=== PATIENT | male | born 1980 | race Caucasian/White ===

== ENCOUNTER → 2020-11-11 14:20 | Outpatient (BNVA) | payer SELFPAY | PROVIDERS: Visit Provider Physician Assistant Medical | DX: Z02.79 Encounter for issue of other medical certificate (principal) ==

== ENCOUNTER 2023-04-05 11:37 | Outpatient (AMB) | payer MEDICAID, SELFPAY ==
--- NOTE | 2023-04-05 11:36 | A.OFFVIS_ITS ---
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 Pt is on his feet a lot and sometimes does heavy lifting. Also has family hx of VV. Pt states he has had VV for many years. Pt states they are painful, itching, swelling and discoloration. 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 Complaints include pain over varicosities, swelling of lower extremities, cramping, fatigue, and heaviness of the lower extremities. 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 It is noted more so in left leg. Patient denies any previous venous surgery or injections. Patient denies any history of DVT/ PE. Patient denies any history of phlebitis. Trial of compression includes - [id number] They now present for vascular evaluation regarding their varicose veins. Review of Systems Const Reports as per HPI ENT Reports no additional complaints Card Denies chest pain, Denies chest pain at rest and Denies chest pain with activity Resp Denies chest congestion and Denies cough GI Reports no additional complaints Musc Details: pain over varicosities, aching of lower extremities, swelling, cramping, heaviness and tiredness, itching Denies abnormal gait Skin/Breast Reports pruritus and Denies wounds Neuro Reports no additional complaints and Denies abnormal gait Psych Denies no additional complaints Physical Exam Vital Signs: BMI result Body Mass Index 30.3 Const General: cooperative, healthy appearing and comfortable Orientation/consciousness: oriented to person, oriented to place and oriented to time Neck Carotids: no bruits Chest Chest palpation & inspection: normal inspection of the chest and normal palpation of entire chest wall Resp Effort & Inspection: normal respiratory effort and able to speak in complete sentences Cardio Rate: regular rate Heart sounds: S1 normal heart sound present and S2 normal heart sound present Peripheral pulses: Peripheral pulses 2+ throughout GI Inspection: Yes normal to inspection Skin Other: +2 edema, large rope-like varicosities greater than 4 mm left calf CEAP Classification C4 - skin color changes Ep - Etiology Primary As - superficial veins P - reflux General skin exam: dry skin Neuro General: oriented to person, oriented to place and oriented to time Extrem Right lower extremity: full ROM, normal capillary refill and edema Left lower extremity: full ROM, normal capillary refill and edema Psych Mental Status: mental status grossly normal Assessment & Plan Assessment & Plan (1) Varicose veins of left lower extremity with inflammation: Code(s): I83.12 - Varicose veins of left lower extremity with inflammation Plan: In short, the patient has evidence of venous insufficiency. I have discussed the pathophysiology with the patient. In addition I have provided informational material regarding venous disease to the patient. We have discussed conservative measures including compression, elevation, and exercise. I have also provided a handout regarding appropriate use of compression stockings and where to purchase good compression stockings as well. I have taken the liberty of ordering venous insufficiency testing with the patient. They will follow up with me after testing. The patient had an opportunity to ask questions regarding the treatment plan. All questions were answered. Imaging studies, laboratory studies and physical exam results were discussed and reviewed in detail. No major barriers to understanding were identified. The patient expressed understanding and agreement with the above treatment plan. The patient is aware they should contact our office by phone for worsening of the current condition or the appearance of new symptoms. Thank you for allowing me to participate in the vascular care of this patient. If you have any questions or concerns regarding the treatment for the above condition please do not hesitate to contact me. The office telephone contact is [phone]. This note is constructed using voice recognition software. While every effort has been made to ensure accuracy, movie projectionist errors may have been included. Thank you for allowing me to participate in the care of your patient. Yours sincerely, Ankit Gill MD, FACS, R.P.V.I. Orders: Orders US venous insuf bilat 1 Week I83.12 - Varicose veins of left lower extremity with inflammation Coding Level of Care Code New Pt Level 4 (92992) Diagnoses Varicose veins of left lower extremity with inflammation I83.12
[2023-04-05 11:38] VITALS: BMI 30.3
== END 2023-04-05 11:52 | disposition home or self-care (01) ==
PROVIDERS: Visit Provider Surgery Vascular Surgery
DX: I83.12 Varicose veins of left lower extremity with inflammation (principal)
CPT/HCPCS: 99203

== ENCOUNTER → 2023-04-05 11:37 | Outpatient (BNVA) | payer MEDICAID, SELFPAY | PROVIDERS: Visit Provider Surgery Vascular Surgery | DX: I83.12 Varicose veins of left lower extremity with inflammation (principal) | CPT/HCPCS: 99202 ==

== ENCOUNTER 2023-04-27 13:05 | Outpatient (REF) | payer MEDICAID, SELFPAY ==
--- NOTE | ~2023-04-27 | US_ITS ---
EXAMINATION: US LOWER EXTREMITY VENOUS (REFLUX EXAM), BILATERAL CLINICAL INDICATION: Varicose veins COMPARISON: None. TECHNIQUE: Color flow triplex imaging and compression Doppler was performed to evaluate both the deep and the superficial systems bilaterally. To evaluate the superficial system, the examination was performed in the upright position. Color-flow Doppler ultrasound and compression ultrasound were utilized. In addition, maneuvers were utilized to demonstrate reflux. FINDINGS: RIGHT: 1. DEEP VENOUS ULTRASOUND OF THE RIGHT LOWER EXTREMITY: Common Femoral Vein: Compressible, normal respiratory variation and augmented flow. Popliteal Vein: Compressible, normal augmentation. Deep Venous Reflux: Abnormal reflux is seen within the popliteal vein (1080 ms). There is no evidence of a Pérez's cyst. 2. SUPERFICIAL ULTRASOUND WITH DOPPLER OF RIGHT LOWER EXTREMITY: RIGHT GREAT SAPHENOUS VEIN: Saphenofemoral Junction: 7 mm. No reflux. Proximal Thigh: 6 mm. 2052 ms reflux. Mid Thigh: 6 mm. 2076 ms reflux. Above Knee: 6 mm. 2004 ms reflux. Below Knee: 5 mm. 2046 ms reflux. Mid Calf: 3 mm. No reflux. Ankle: 2 mm. No reflux. DUPLICATED GREAT SAPHENOUS VEIN: Located medially and laterally, without reflux. RIGHT SMALL SAPHENOUS VEIN: Proximal: 3 mm. No reflux. Distal: 2 mm. No reflux. PERFORATORS: At the level of the knee measuring 0.8 mm. At the level of the calf measuring 2 mm. At the level of the distal calf measuring 2 mm. No abnormal reflux within any of these perforators. Varicose veins: Proximal calf: 3 to 5 mm with abnormal reflux up to 2168 ms. LEFT: 1. DEEP VENOUS ULTRASOUND OF THE LEFT LOWER EXTREMITY: Common Femoral Vein: Compressible, normal respiratory variation and augmented flow. Popliteal Vein: Compressible, normal augmentation. Deep Venous Reflux: Abnormal reflux is seen within the common femoral (884 ms) and popliteal veins (712 ms). There is no evidence of a Pérez's cyst. 2. SUPERFICIAL ULTRASOUND WITH DOPPLER OF LEFT LOWER EXTREMITY: LEFT GREAT SAPHENOUS VEIN: Saphenofemoral Junction: 7 mm. No reflux. Proximal Thigh: 7 mm. 2032 ms reflux. Mid Thigh: 7 mm. 2120 ms reflux. Above Knee: 6 mm. 2260 ms reflux. Below Knee: 3 mm. 1648 ms reflux. Mid Calf: 2 mm. 2016 ms reflux. Ankle: 2 mm. No reflux. DUPLICATED GREAT SAPHENOUS VEIN: Located medially and laterally, without reflux. LEFT SMALL SAPHENOUS VEIN: Proximal: 2 mm. No reflux. Distal: 3 mm. No reflux. PERFORATORS: Mid small saphenous vein: 2 mm. No reflux Distal small saphenous vein: 3 mm. No reflux Proximal calf: 3 mm. No reflux Varicose veins: Proximal calf: 5 mm. 2076 ms reflux US/US venous insuf bilat IMPRESSION: 1. Abnormal deep venous reflux seen within bilateral popliteal and left common femoral veins. 2. Abnormal superficial venous reflux within bilateral great saphenous veins. 3. Bilateral proximal calf varicose veins measuring greater than 3 mm and associated with abnormal reflux. Abnormal lower extremity venous reflux times: Superficial and deep calf veins: >500 ms Femoropopliteal veins: >1000 ms Perforating veins: >350 ms Labarun N, Susan J, Lupillo L, Sarah AK, Anthony SS, King Veloz M, Beto WH. Definition of venous reflux in lower-extremity veins.J Vasc Surg. 2003; [phone].
== END 2023-04-27 13:06 | disposition home or self-care (01) ==
LOC: HO.US 13:05
PROVIDERS: Visit Provider Surgery Vascular Surgery
DX: I83.12 Varicose veins of left lower extremity with inflammation (principal)
CPT/HCPCS: 93970

== ENCOUNTER 2023-05-08 13:41 | Outpatient (AMB) | payer MEDICAID, SELFPAY ==
--- NOTE | 2023-05-08 13:43 | A.OFFVIS_ITS ---
Intake Vital Signs 05/08/23 13:46 Height 6 ft 1 in Weight 230 lb BMI 30.3 Intake Visit Reasons: follow up [facility] 04/27/2023 Intake Note: follow up [facility] 04/27/23, Pt states that Left LE is worse than Right LE, Pt is on his feet a lot and does heavy lifting. Has family Hx of VV and has had VV for many years but more recentky they have become painful. He has itching, pain, swelling and discoloration Accompanied by: Self / Same As Patient Allergies No Known Allergies Allergy (Verified 05/08/23 13:49) HPI follow up [facility] 04/27/2023 HPI Details Very pleasant 42-year-old gentleman presents for follow-up regarding venous insufficiency. Reports that he has significant difficulty left more so than right. 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 He now presents for follow-up with venous insufficiency testing. Review of Systems Const Reports as per HPI ENT Reports no additional complaints Card Denies chest pain, Denies chest pain at rest and Denies chest pain with activity Resp Denies chest congestion and Denies cough GI Reports no additional complaints Musc Details: pain over varicosities, aching of lower extremities, swelling, cramping, heaviness and tiredness, itching Denies abnormal gait Skin/Breast Reports pruritus and Denies wounds Neuro Reports no additional complaints and Denies abnormal gait Psych Denies no additional complaints Physical Exam Vital Signs: BMI result Body Mass Index 30.3 Const General: cooperative, healthy appearing and comfortable Orientation/consciousness: oriented to person, oriented to place and oriented to time Neck Carotids: no bruits Chest Chest palpation & inspection: normal inspection of the chest and normal palpation of entire chest wall Resp Effort & Inspection: normal respiratory effort and able to speak in complete sentences Cardio Rate: regular rate Heart sounds: S1 normal heart sound present and S2 normal heart sound present Peripheral pulses: Peripheral pulses 2+ throughout GI Inspection: Yes normal to inspection Skin Other: +2 edema, large rope-like varicosities greater than 4 mm CEAP Classification C4 - skin color changes Ep - Etiology Primary As - superficial veins P - reflux General skin exam: dry skin Neuro General: oriented to person, oriented to place and oriented to time Extrem Right lower extremity: full ROM, normal capillary refill and edema Left lower extremity: full ROM, normal capillary refill and edema Psych Mental Status: mental status grossly normal Results Reviewed Results Reviewed: Brief summary of venous insufficiency testing is as follows: right great saphenous vein: Positive right small saphenous vein: negative right accessory vein: none present left great saphenous vein: Positive left small saphenous vein: negative left accessory vein: none present Please note there is no evidence of any venous aneurysms or significant tortuosity Assessment & Plan Assessment & Plan (1) Varicose veins of left lower extremity with inflammation: Code(s): I83.12 - Varicose veins of left lower extremity with inflammation Plan: This patient has varicose veins with inflammation. They continue to be a source of discomfort for the patient. The patient has tried conservative treatment with compression, leg elevation and exercise program for over 3 months time. They have been compliant with all treatment. This has provided minimal relief for the patient. I do not anticipate this course of treatment will alter the underlying etiology. The patient has been scheduled for lower extremity venous treatment inclusive of --- left great saphenous vein Cyanoacralate ablation. Risks, benefits, and complications of this procedure has been discussed in detail with the patient including but not limited to bleeding, infection, and the development of a DVT. The patient has demonstrated a clear understanding and has consented. We will schedule the patient as soon as possible. Thank you for allowing us to participate in this patient's care. If there are any questions or concerns please do not hesitate to contact us. Coding Level of Care Code Est Pt Level 4 (05313) Diagnoses Varicose veins of left lower extremity with inflammation I83.12
[2023-05-08 13:46] VITALS: BMI 30.3
== END 2023-05-08 14:34 | disposition home or self-care (01) ==
PROVIDERS: Visit Provider Surgery Vascular Surgery
DX: I83.12 Varicose veins of left lower extremity with inflammation (principal)
CPT/HCPCS: 99214

== ENCOUNTER → 2023-05-08 13:41 | Outpatient (BNVA) | payer MEDICAID, SELFPAY | PROVIDERS: Visit Provider Surgery Vascular Surgery | DX: I83.12 Varicose veins of left lower extremity with inflammation (principal) | CPT/HCPCS: 99212 ==

== ENCOUNTER 2023-06-22 09:33 | Outpatient (AMB) | payer MEDICAID, SELFPAY ==
--- NOTE | 2023-06-22 09:45 | MHC.OFFVIS ---
Vital Signs 06/22/23 09:46 Height 6 ft 1 in Weight 230 lb BMI 30.3 Intake Visit Reasons: Left GSV Venaseal Accompanied by: Self / Same As Patient Allergies No Known Allergies Allergy (Verified 06/22/23 09:56) Physical Exam Vital Signs: BMI result Body Mass Index 30.3 Office Procedures Vascular Office Procedure Details Details: Diagnosis: Left Leg varicose veins with inflammation Procedure: Endovenous Ablation of the left Great Saphenous Vein with VenaSeal Closure System Anesthesia: Local infiltration 5 cc, Estimated Blood Loss: min Specimen: none Duplex ultrasound was used to map out the insufficient saphenous vein, and access was determined and marked on the overlying skin. The depth and diameter of the vein(s) to be treated was documented. The patient was placed supine on the procedure table and the leg was prepped and draped using sterile technique. Ultasound guidance was again used to localize the access site. 1% lidocaine was injected as a local anesthetic in the subcutaneous tissues at the target location in the GSV in the lower leg. Using ultrasound guidance, access was gained at this location with the 19 gauge thin walled access needle and followed by introduction of a short guidewire, location confirmed with ultrasound. A small, 3 mm incision was made at the access site to allow for introduction and placement of the 7 Fr x7cm introducer/dilator. The dilator and guidewire were removed. The 0.035 guidewire from the VenaSeal kit was then introduced and positioned at the saphenofemoral junction using ultrasound guidance. The 80 cm 7 Fr introducer sheath/dilator was positioned 5cm from the saphenofemoral junction. The guidewire and dilator were removed, and the remaining sheath was flushed with sterile saline, with the syringe remaining in place prior to the next steps. The cyanoacrylate adhesive was precisely primed into the 5 F delivery catheter and this catheter/syringe combination was attached within the dispenser gun. This assembly was introduced through the 7F sheath and positioned 5 cm caudal of the saphenofemoral junction under ultrasound guidance. The steps from the IFU were followed for dispensing amounts, locations and compression times, 2 aliquots proximally with 3 minutes of compression, and 1 aliquot every 3 cm distally with 30 sec of compression along the course of the vessel. Following the last injection and compression sequence, the catheter and introducer sheath were pulled out from the access site. Hemostasis was achieved with manual compression and an adhesive bandage was applied to the incision. Ultrasound confirmed complete coaptation and closure of the treated segments of the GSV, and the absence of any DVT at the saphenofemoral junction. Treatment time was approximately 5 minutes and the vein length treated was 31 cm. The drapes were removed and the patient cleaned and prepared for discharge. Post op ultrasound check is scheduled for 48-72 hours and the patient was given written post-op instructions. 58263 - Endoven Ther Chem Adhes 1st All charges added?: Procedure code (CPT) selection complete Assessment & Plan Assessment & Plan (1) Varicose veins of left lower extremity with inflammation: Comment: 06/22/2023- left great saphenous vein Cyanoacralate ablation Code(s): I83.12 - Varicose veins of left lower extremity with inflammation Category: Medical Plan: See op note Coding Level of Care Code Est Pt Level 4 (38221) Diagnoses Varicose veins of left lower extremity with inflammation I83.12 CPT Codes Details - Vascular 3: 14736 - Endoven Ther Chem Adhes 1st ([id number])
[2023-06-22 09:46] VITALS: BMI 30.3
== END 2023-06-22 11:46 | disposition home or self-care (01) ==
PROVIDERS: Referring Provider Internal Medicine; Visit Provider Surgery Vascular Surgery
DX: I83.12 Varicose veins of left lower extremity with inflammation (principal)
CPT/HCPCS: 36482

== ENCOUNTER → 2023-06-22 09:33 | Outpatient (BNVA) | payer MEDICAID, SELFPAY | PROVIDERS: Visit Provider Surgery Vascular Surgery | DX: I83.12 Varicose veins of left lower extremity with inflammation (principal) | CPT/HCPCS: 36482 ==

== ENCOUNTER 2023-06-25 13:21 | Outpatient (REF) | payer MEDICAID, SELFPAY ==
--- NOTE | ~2023-06-25 | US_ITS ---
EXAMINATION: TRIPLEX SCANNING OF LEFT LOWER EXTREMITY; SUPERFICIAL ULTRASOUND WITH DOPPLER OF LEFT LOWER EXTREMITY CLINICAL INFORMATION: Status VenaSeal ablation of the left great saphenous vein , COMPARISON: Preprocedure studies. TECHNIQUE: Color flow triplex imaging and compression Doppler were performed as well as superficial ultrasound with Doppler. FINDINGS: TRIPLEX SCANNING OF LEFT LOWER EXTREMITY: Respiratory variation, normal compression and augmented flow are noted throughout the lower extremity. The visualized common femoral vein, femoral vein, profunda femoral vein, popliteal vein and the calf veins show no evidence of deep venous thrombosis. There is no evidence of Pérez's cyst. SUPERFICIAL ULTRASOUND WITH DOPPLER OF LEFT LOWER EXTREMITY: The left great saphenous vein is occluded from the access site to 2.1 cm before the saphenofemoral junction. There is no extension of thrombus into the deep system. US/US venous duplex LE IMPRESSION: 1. Normal triplex scan of the left without evidence of deep venous thrombosis. 2. Excellent appearance status post ablation of the left great saphenous vein.
== END 2023-06-25 13:22 | disposition home or self-care (01) ==
LOC: HO.US 13:21
PROVIDERS: Visit Provider Surgery Vascular Surgery
DX: M79.605 Pain in left leg (principal)
CPT/HCPCS: 93971

== ENCOUNTER 2023-07-03 08:59 | Outpatient (AMB) | payer MEDICAID, SELFPAY ==
--- NOTE | 2023-07-03 09:00 | A.OFFVIS_ITS ---
Intake Visit Reasons: 2 week follow up Left GSV RFA 06/22/2023 Intake Note: Patient presents for 2 week follow up left gsv rfa . He states his leg feels good he has minimal bruising. Accompanied by: Self / Same As Patient Allergies No Known Allergies Allergy (Verified 07/03/23 09:02) [facility] 2 week follow up Left GSV RFA 06/22/2023: Details: Very pleasant 42-year-old gentleman presents for follow-up status post left great saphenous vein ablation. He reports no significant issues postprocedure. Of note postprocedure ultrasound was negative for DVT. He is concerned about his right lower extremity. He is experiencing similar symptoms including pain and swelling. He would like evaluation of the right lower extremity. Review of Systems Const Reports as per HPI ENT Reports no additional complaints Card Denies chest pain, Denies chest pain at rest and Denies chest pain with activity Resp Denies chest congestion and Denies cough GI Reports no additional complaints Musc Details: pain over varicosities, aching of lower extremities, swelling, cramping, heaviness and tiredness, itching Denies abnormal gait Skin/Breast Reports pruritus and Denies wounds Neuro Reports no additional complaints and Denies abnormal gait Psych Denies no additional complaints Physical Exam Const General: cooperative, healthy appearing and comfortable Orientation/consciousness: oriented to person, oriented to place and oriented to time Neck Carotids: no bruits Chest Chest palpation & inspection: normal inspection of the chest and normal palpation of entire chest wall Resp Effort & Inspection: normal respiratory effort and able to speak in complete sentences Cardio Rate: regular rate Heart sounds: S1 normal heart sound present and S2 normal heart sound present Peripheral pulses: Peripheral pulses 2+ throughout GI Inspection: Yes normal to inspection Skin Other: +2 edema, large rope-like varicosities greater than 4 mm CEAP Classification C4 - skin color changes Ep - Etiology Primary As - superficial veins P - reflux General skin exam: dry skin Neuro General: oriented to person, oriented to place and oriented to time Extrem Right lower extremity: full ROM, normal capillary refill and edema Left lower extremity: full ROM, normal capillary refill and edema Psych Mental Status: mental status grossly normal Results Reviewed Results Reviewed: Brief summary of venous insufficiency testing is as follows: right great saphenous vein: Positive right small saphenous vein: negative right accessory vein: none present left great saphenous vein: Ablated left small saphenous vein: negative left accessory vein: none present Please note there is no evidence of any venous aneurysms or significant tortuosity Assessment & Plan Assessment & Plan (1) Varicose veins of left lower extremity with inflammation: Comment: 06/22/2023- left great saphenous vein Cyanoacralate ablation Code(s): I83.12 - Varicose veins of left lower extremity with inflammation Category: Medical Plan: See below (2) Varicose veins of right lower extremity with inflammation: Code(s): I83.11 - Varicose veins of right lower extremity with inflammation Category: Medical Plan: This patient has varicose veins with inflammation. They continue to be a source of discomfort for the patient. The patient has tried conservative treatment with compression, leg elevation and exercise program for over 3 months time. They have been compliant with all treatment. This has provided minimal relief for the patient. I do not anticipate this course of treatment will alter the underlying etiology. The patient has been scheduled for lower extremity venous treatment inclusive of --- right great saphenous vein Cyanoacralate ablation. Risks, benefits, and complications of this procedure has been discussed in detail with the patient including but not limited to bleeding, infection, and the development of a DVT. The patient has demonstrated a clear understanding and has consented. We will schedule the patient as soon as possible. Thank you for allowing us to participate in this patient's care. If there are any questions or concerns please do not hesitate to contact us. Coding Level of Care Code Est Pt Level 4 (84388) Diagnoses Varicose veins of left lower extremity with inflammation I83.12 Varicose veins of right lower extremity with inflammation I83.11
== END 2023-07-03 09:31 | disposition home or self-care (01) ==
PROVIDERS: Visit Provider Surgery Vascular Surgery
DX: I83.12 Varicose veins of left lower extremity with inflammation (principal); I83.11 Varicose veins of right lower extremity with inflammation
CPT/HCPCS: 99214

== ENCOUNTER → 2023-07-03 08:59 | Outpatient (BNVA) | payer MEDICAID, SELFPAY | PROVIDERS: Visit Provider Surgery Vascular Surgery | DX: I83.12 Varicose veins of left lower extremity with inflammation (principal); I83.11 Varicose veins of right lower extremity with inflammation | CPT/HCPCS: 99212 ==

== ENCOUNTER 2023-10-05 09:33 | Outpatient (AMB) | payer MEDICAID, SELFPAY ==
[2023-10-05 09:37] VITALS: BMI 30.3
--- NOTE | 2023-10-05 09:37 | MHC.OFFVIS ---
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 The depth and diameter of the vein(s) to be treated was documented. The patient was placed supine on the procedure table and the leg was prepped and draped using sterile technique. Ultasound guidance was again used to localize the access site. 1% lidocaine was injected as a local anesthetic in the subcutaneous tissues at the target location in the GSV in the lower leg. Using ultrasound guidance, access was gained at this location with the 19 gauge thin walled access needle and followed by introduction of a short guidewire, location confirmed with ultrasound. A small, 3 mm incision was made at the access site to allow for introduction and placement of the 7 Fr x7cm introducer/dilator. The dilator and guidewire were removed. The 0.035 guidewire from the VenaSeal kit was then introduced and positioned at the saphenofemoral junction using ultrasound guidance. The 80 cm 7 Fr introducer sheath/dilator was positioned 5cm from the saphenofemoral junction. The guidewire and dilator were removed, and the remaining sheath was flushed with sterile saline, with the syringe remaining in place prior to the next steps. The cyanoacrylate adhesive was precisely primed into the 5 F delivery catheter and this catheter/syringe combination was attached within the dispenser gun. This assembly was introduced through the 7F sheath and positioned 5 cm caudal of the saphenofemoral junction under ultrasound guidance. The steps from the IFU were followed for dispensing amounts, locations and compression times, 2 aliquots proximally with 3 minutes of compression, and 1 aliquot every 3 cm distally with 30 sec of compression along the course of the vessel. Following the last injection and compression sequence, the catheter and introducer sheath were pulled out from the access site. Hemostasis was achieved with manual compression and an adhesive bandage was applied to the incision. Ultrasound confirmed complete coaptation and closure of the treated segments of the GSV, and the absence of any DVT at the saphenofemoral junction. Treatment time was approximately 6 minutes and the vein length treated was 40 cm. The drapes were removed and the patient cleaned and prepared for discharge. Post op ultrasound check is scheduled for 48-72 hours and the patient was given written post-op instructions. 72103 - Endoven Ther Chem Adhes 1st All charges added?: Procedure code (CPT) selection complete Assessment & Plan Assessment & Plan (1) Varicose veins of right lower extremity with inflammation: Comment: 10/05/2023 - right great saphenous vein Cyanoacralate ablation Code(s): I83.11 - Varicose veins of right lower extremity with inflammation Category: Medical Plan: See op note Coding Level of Care Code Procedure Only Diagnoses Varicose veins of right lower extremity with inflammation I83.11 CPT Codes Details - Vascular 3: 97262 - Endoven Ther Chem Adhes 1st ([id number])
== END 2023-10-05 10:47 | disposition home or self-care (01) ==
PROVIDERS: Referring Provider Internal Medicine; Visit Provider Surgery Vascular Surgery
DX: I83.11 Varicose veins of right lower extremity with inflammation (principal)
CPT/HCPCS: 36482

== ENCOUNTER → 2023-10-05 09:33 | Outpatient (BNVA) | payer MEDICAID, SELFPAY | PROVIDERS: Visit Provider Surgery Vascular Surgery | DX: I83.11 Varicose veins of right lower extremity with inflammation (principal) | CPT/HCPCS: 36482 ==

== ENCOUNTER 2023-10-09 09:43 | Outpatient (REF) | payer MEDICAID, SELFPAY ==
--- NOTE | ~2023-10-09 | US_ITS ---
EXAMINATION: US TRIPLEX LOWER EXTREMITY, RIGHT CLINICAL INFORMATION: Rule out DVT post right lower extremity venaseal 09/07/2023 COMPARISON: Ultrasound 04/27/2023 TECHNIQUE: Color-flow triplex imaging with spectral analysis and compression Doppler were performed on the right lower extremity. FINDINGS: Respiratory variation, normal compression and augmented flow are noted throughout the right lower extremity. The visualized common femoral vein, superficial femoral vein, profunda femoral vein, popliteal vein and midcalf peroneal and posterior tibial venous segments show no evidence of deep venous thrombosis. There are changes related to venaseal of the great saphenous vein. The vessel is closed 2.1 cm distal to the saphenofemoral junction. There is no Pérez's cyst. US/US venous duplex LE RT IMPRESSION: No evidence of deep venous thrombosis involving the right lower extremity. 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 Electronically signed by: Migel Choe MD 10/09/2023 10:11 AM EDT
== END 2023-10-09 09:44 | disposition home or self-care (01) ==
LOC: HO.US 09:43
PROVIDERS: Visit Provider Surgery Vascular Surgery
DX: M79.604 Pain in right leg (principal)
CPT/HCPCS: 93971

== ENCOUNTER 2023-10-16 09:57 | Outpatient (AMB) | payer MEDICAID, SELFPAY ==
[2023-10-16 09:58] VITALS: BMI 30.3
--- NOTE | 2023-10-16 09:58 | MHC.OFFVIS ---
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 He appears to be doing extremely well. No postprocedure issues. Of note postprocedure ultrasound was negative for DVT Review of Systems Const All systems reviewed & are unremarkable except as noted in HPI and below Reports no additional complaints ENT Reports Normal hearing present Card Denies chest pain, Denies chest pain at rest, Denies chest pain with activity and Denies pedal edema Resp Denies cough GI Denies abdominal pain Musc Denies abnormal gait, Denies muscle cramps and Denies radiating pain into limb Skin/Breast Denies skin ulcer and Denies wounds Neuro Reports Normal hearing present and Denies abnormal gait Psych Reports no additional complaints Physical Exam Vital Signs: BMI result Body Mass Index 30.3 Const General: cooperative, healthy appearing and comfortable Orientation/consciousness: oriented to person, oriented to place and oriented to time HEENT Head: Yes normal to inspection Neck Neck: Yes normal visual inspection Carotids: no bruits Chest Chest palpation & inspection: normal inspection of the chest Resp Effort & Inspection: normal respiratory effort and able to speak in complete sentences Auscultation: clear to auscultation bilaterally, no crackles, no rales, no rhonchi and no wheezes Cardio Rate: regular rate Rhythm: regular rhythm Heart sounds: S1 normal heart sound present and S2 normal heart sound present Bruits: no carotid bruits Peripheral pulses: Peripheral pulses 2+ throughout GI Inspection: Yes normal to inspection Skin Wounds: no wounds Hair: normal Neuro General: oriented to person, oriented to place and oriented to time Cranial nerves: Yes CN's II-XII intact bilaterally and Yes Normal hearing present Cognition (Neuro): normal cognition Motor exam (neuro): 5/5 motor strength present throughout Extrem Other: venous exam: No significant superficial varicosities or spider telangiectasias, minimal edema General: No clubbing, No cyanosis and No edema Psych Appearance: grossly normal Mental Status: mental status grossly normal Speech and movement: Normal speech and movement present Assessment & Plan Assessment & Plan (1) Varicose veins of right lower extremity with inflammation: Comment: 10/05/2023 - right great saphenous vein Cyanoacralate ablation Code(s): I83.11 - Varicose veins of right lower extremity with inflammation Category: Medical Plan: See below (2) Varicose veins of left lower extremity with inflammation: Comment: 06/22/2023- left great saphenous vein Cyanoacralate ablation Code(s): I83.12 - Varicose veins of left lower extremity with inflammation Category: Medical Plan: The patient has done extremely well with all venous treatments. Patient's may often experience postprocedure phlebitic episodes and I have discussed with the patient use of warm compresses and NSAIDS if tolerated for pain discomfort. In addition, I have discussed continued conservative measures including use of compression, leg elevation, and exercise. The patient was also given an information sheet regarding appropriate use of compression stockings and future purchases. Thank you for allowing us to care for your patient with venous disease. Coding Level of Care Code Est Pt Level 3 (29440) Diagnoses Varicose veins of right lower extremity with inflammation I83.11 Varicose veins of left lower extremity with inflammation I83.12
== END 2023-10-16 10:12 | disposition home or self-care (01) ==
PROVIDERS: Visit Provider Surgery Vascular Surgery
DX: I83.11 Varicose veins of right lower extremity with inflammation (principal); I83.12 Varicose veins of left lower extremity with inflammation
CPT/HCPCS: 99213

== ENCOUNTER → 2023-10-16 09:57 | Outpatient (BNVA) | payer MEDICAID, SELFPAY | PROVIDERS: Visit Provider Surgery Vascular Surgery | DX: I83.11 Varicose veins of right lower extremity with inflammation (principal); I83.12 Varicose veins of left lower extremity with inflammation | CPT/HCPCS: 99212 ==

== ENCOUNTER 2024-07-09 09:15 | Outpatient (AMB) | payer MEDICAID, SELFPAY ==
--- NOTE | 2024-07-09 09:17 | A.OFFVIS_ITS ---
Vital Signs 07/09/24 09:29 Height 6 ft 1 in Weight 244 lb BMI 32.2 BP 117/70 Blood Pressure Location Lt brachial Position Sitting Pulse 75 Pulse Oximetry (%) 98 Oxygen Delivery Method Room Air Intake Visit Reasons: Abdominal pain and diarrhea Intake Note: Patient new consult for Abdominal pain and diarrhea. Patient cc: between diarrhea and constipation on/off, and GERD. Denies any other GI issues. 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 Initially pt was unsure what the referral was for and thought this was intermittent facial rash. He also reports occ diarrhea related to certain food triggers such as fried food or spicy food. BMs can be up to 3-4 times a day. Not assoc with abd pain or nausea. This happens 1-2 times a month. Is being careful with his diet lately so frequency less now. Had allergy testing done 2 months ago and was only pos for strawberries per his report. Mother: stomach ca Does not smoke. Drinks once a week. [facility] Surgical History (Updated 07/09/24 @ 09:26 by Cintia Hoang) Hx of vascular surgery Social History (Updated 07/09/24 @ 09:25 by Cintia Hoang) Household Members: Family Alcohol intake: current Alcohol intake frequency: holidays/special occasions only Patient Tobacco Use Status: Never used Tobacco Review of Systems Const All systems reviewed & are unremarkable except as noted in HPI and below Physical Exam Vital Signs: Last Vital Signs Pulse 75 07/09/24 09:29 BP 117/70 07/09/24 09:29 Pulse Ox 98 07/09/24 09:29 Oxygen Delivery Method Room Air 07/09/24 09:29 BMI result Body Mass Index 32.2 No apparent distress Nonicteric Abdomen soft, nondistended Alert and oriented x3, normal gait Assessment & Plan Assessment & Plan (1) Diarrhea: Code(s): R19.7 - Diarrhea, unspecified Category: Medical (2) Food 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 Reports with fatty food but also certain fruits ? CSID. Other ddx include panc insufficiency, IBD, dietary intolerance/malabsorption, symptomatic gallstones. Since pt also reports occ facial rash will also check DARNELL screen. Plan: - Labs as below - US abd - Avoid dietary triggers - HOLD antidiarrheals until lab results are available - No red flags to indicate urgent endoscopic evaluation at this time Follow up 3 months Orders: Orders TSH reflex Free T4 Today R19.7 - Diarrhea, unspecified US abdomen complete Today R19.7 - Diarrhea, unspecified DARNELL Reflex Titer and Pattern Today K90.49 - Malabsorption due to intolerance, not elsewhere classified Pancreatic Elastase-1 Today R19.7 - Diarrhea, unspecified Calprotectin, Fecal Today R19.7 - Diarrhea, unspecified C Reactive Protein Today R19.7 - Diarrhea, unspecified Complete Blood Count no Diff Today R19.7 - Diarrhea, unspecified Comprehensive Met. Panel Today R19.7 - Diarrhea, unspecified Transglutaminase IgA Today R19.7 - Diarrhea, unspecified Immunoglobulin A Today R19.7 - Diarrhea, unspecified DNA Double Stranded-Crithidia Today K90.49 - Malabsorption due to intolerance, not elsewhere classified Fecal Fat Qualitative Today R19.7 - Diarrhea, unspecified Coding Level of Care Code New Pt Level 4 (75285) Diagnoses Diarrhea R19.7 Food intolerance in adult K90.49
[2024-07-09 09:29] VITALS: BP 117/70; PULSE 75; O2SAT 98; BMI 32.2
--- OUTSIDE RECORDS SUMMARY | 2024-07-09 09:38 | XMS_ITS | Encounter Summary ---
Author Organization [facility] Address [address] [place] [address] Care Team Providers Care Egg Breaker Name Role Phone Pcp, No Primary Care Provider Unavailabl e Encounter Details Date Type Department Care Team (Late st Contact Info) Description 04/14/2020 Erroneous Encounter OA CONVERSION DEPT [address] [place] [address] Provider, MD Juan Social History Tobacco Use Types Packs/Day Years Used Date Smoking Tobacco: Never Smokeless Tobacco: Never Alcohol Use Standard Drinks/Week Comments Yes 0 (1 standard drink = 0.6 oz pur e alcohol) Sex and Gender Information Value Date Recorded Sex Assigned at Not on file Legal Sex Male 7:23 PM EST Gender Identity Not on file Sexual Orientation Not on file documented as of this encounter Plan of Treatment Not on file documented as of this encounter Visit Diagnoses Not on filedocumented in this encounter Care Teams Egg Breaker Relationship Specialty Start Date End Date Pcp, No PCP - General General Medicine 03/20/19 documented as of this encounter
== END 2024-07-09 10:07 | disposition home or self-care (01) ==
PROVIDERS: PCP Physician Assistant Medical; Visit Provider Internal Medicine
DX: R19.7 Diarrhea, unspecified (principal); K90.49 Malabsorption due to intolerance, not elsewhere classified
CPT/HCPCS: 99204

== ENCOUNTER → 2024-07-09 09:15 | Outpatient (BNVA) | payer MEDICAID, SELFPAY | PROVIDERS: PCP Physician Assistant Medical; Visit Provider Internal Medicine ==

== ENCOUNTER 2024-07-09 10:45 | Outpatient (REF) | payer MEDICAID, SELFPAY ==
[2024-07-09 14:23] LABS: Hematocrit 45.8 % (42.0-52.0); Hemoglobin 15.4 g/dl (14.0-18.0); Mean Corpuscular HGB Conc 33.6 g/dl (31.0-36.0); Mean Corpuscular Hemoglobin 27.9 pg (27.0-33.0); Mean Corpuscular Volume 83.1 fL (80.0-98.0); Mean Platelet Volume 9.4 fL (9.4-12.4); Platelet Count 190 X10*3/uL (160-400); Red Blood Count 5.51 X10*6/uL (4.60-5.80); Red Cell Distribution Width 12.2 % (11.0-16.0); White Blood Count 6.7 X10*3/uL (4.8-10.8)
[2024-07-09 15:17] LABS: TSH reflex Free T4 1.12 uIU/mL (0.32-4.0)
[2024-07-09 15:34] LABS: Anion Gap 9 (12-20)
[2024-07-09 15:38] LABS: Alanine Aminotransferase 56 U/L (0-40); Albumin Level 4.6 g/dL (3.5-5.0); Alkaline Phosphatase 62 U/L (39-117); Aspartate Amino Transferase 34 U/L (5-37); Bilirubin Total 0.4 mg/dL (0.0-1.0); Blood Urea Nitrogen 19 mg/dL (9-16); C Reactive Protein 0.16 mg/dL (< or = 0.50); Calcium 9.6 mg/dL (8.4-10.2); Carbon Dioxide 29 mmol/L (22-29); Chloride 108 mmol/L (96-108); Estimated Glomerular Filt Rate > 60; Glucose Random 88 mg/dL (60-115); Potassium 4.4 mmol/L (3.3-5.1); Sodium 142 mmol/L (135-145); Total Protein 7.5 g/dL (6.5-8.0)
[2024-07-10 05:33] LABS: Immunoglobulin A 174 mg/dL (47-310)
[2024-07-10 20:43] LABS: Transglutaminase IgA <1.0 U/mL
[2024-07-12 08:19] LABS: DNAds, Crithidia Antibody Negative (Negative)
[2024-07-14 11:19] LABS: Anti Nuclear Antibody Screen NEGATIVE (NEGATIVE)
== END 2024-07-09 10:46 | disposition home or self-care (01) ==
LOC: HO.WFDLDS 10:45
PROVIDERS: Visit Provider Internal Medicine
DX: K90.49 Malabsorption due to intolerance, not elsewhere classified (principal); R19.7 Diarrhea, unspecified
CPT/HCPCS: 36415; 80053; 82784; 84443; 85027; 86038; 86140; 86255; 86364; 99202

== ENCOUNTER 2024-08-20 12:16 | Outpatient (REF) | payer MEDICAID, SELFPAY ==
--- OUTSIDE RECORDS SUMMARY | 2024-08-20 13:18 | XMS_ITS | Encounter Summary ---
Author Organization [facility] Address [address] [place] [address] Care Team Providers Care Heading Repairer Name Role Phone Pcp, No Primary Care Provider Unavailabl e Encounter Details Date Type Department Care Team (Late st Contact Info) Description 04/14/2020 Erroneous Encounter OA CONVERSION DEPT [address] [place] [address] Provider, MD Juan Social History Tobacco Use [...] on filedocumented in this encounter Care Teams Heading Repairer Relationship Specialty Start Date End Date Pcp, No PCP - General General Medicine 03/20/19 documented as of this encounter
--- OUTSIDE RECORDS SUMMARY | 2024-08-20 13:18 | XMS_ITS | Clinical Summary ---
Author Organization [facility] Address [address] [id number] Care Team Providers Care Director Web Name Role Phone Unavailable Primary Care Provider Unavailabl e Allergies No known active allergies Medications Medication Sig Dispensed Refills Start Date End Date Status acetaminophen-codeine (TYLENOL #3) 300-30 MG per tablet 0 12/06/2018 Active meloxicam (MOBIC) 15 MG tablet 0 01/27/2019 Active methocarbamol (ROBAXIN) 750 MG tablet 0 12/03/2018 Active predniSONE (DELTASONE) tablet 10 mg 0 12/03/2018 Active ibuprofen (ADVIL,MOTRIN) 600 MG tablet TAKE 1 TABLET BY MOUTH 3 TIMES A DAY NEEDED FOR MILD PAIN 0 03/21/2019 Active Family History Medical History Relation Name Comments Cancer Mother Relation Name Status Comments Mother Social History Tobacco Use Types Packs/Day Years Used Date Smoking Tobacco: Unknown Smokeless Tobacco: Never Alcohol Use Standard Drinks/Week Comments No 0 (1 standard drink = 0.6 oz pur e alcohol) Sex and Gender Information Value Date Recorded Sex Assigned at Not on file Gender Identity Not on file Sexual Orientation Not on file Job Start Date Occupation Industry Not on file Not on file Not on file Last Filed Vital Signs Vital Sign Reading Time Taken Comments Blood Pressure - - Pulse - - Temperature 36.5 C (97.7 F) 08/07/2019 1:32 PM EDT Respiratory Rate - - Oxygen Saturation - - Inhaled Oxygen Concentration - - Weight - - Height - - Body Mass Index - - Plan of Treatment Health Maintenance Due Date Last Done Comments Hepatitis B Vaccines (1 of 3 - 3-dose series) 1980 Hepatitis C Screening 1980 COVID-19 Vaccine (#1) 06/16/1981 Depression Screening 1992 Preventative Health Evaluation 1998 DTap / Tdap / Td (1 - Tdap) 12/18/1999 Influenza Vaccine (#1) 2024 Pneumococcal Vaccine Aged Out No long er eligible based on patient's age to complete this topic RSV Ped < 20 months Aged Out No longe r eligible based on patient's age to complete this topic Darshan Whatley Workers Comp Self 1980 [address] [place] [address] Drashan Whatley Personal/Famil y Self 1980 [address] [place] [address]
--- OUTSIDE RECORDS SUMMARY | 2024-08-20 13:18 | XMS_ITS | Clinical Summary ---
Author Organization [employer] Address [address] [facility] [address] [place] [address] Care Team Providers Care Rn Provider Relations Name Role Phone Unavailable Primary Care Provider Unavailabl e Social History Tobacco Use Types Packs/Day Years Used Date Smoking Tobacco: Never Assessed Sex and Gender Information Value Date Recorded Sex Assigned at Male 12/05/2021 10:36 AM EDT Legal Sex Male 10:36 AM EDT Gender Identity Not on file Sexual Orientation Straight 12/05/2021 10 :36 AM EDT Plan of Treatment Health Maintenance Due Date Last Done Comments Depression Screening 1980 Lipid Panel 1980 Disability Screening 1980 Alcohol/Substance Use Screening 1992 Tobacco Screening 1992 Family Planning (PISQ) 12/18/1995 HPV Vaccines (1 - Male 3-dos e series) 12/18/1995 DTaP/Tdap/Td Vaccines (1 - Tdap) 12/18/1999 Hepatitis B Vaccines (1 of 3 - 19+ 3-dose series) 12/18/1999 COVID-19 Vaccine (1 - 2023-2 5 season) 2023 Influenza Vaccine (#1) 2024 Zoster Vaccines (1 of 2) 2030 RSV Patients and Pa tients Aged 60 years or older (1 - 1-dose 75+ series) 12/18/2055 HIB Vaccines Aged Out No longer eligi ble based on patient's age to complete this topic Hepatitis A Vaccines Aged Out No long er eligible based on patient's age to complete this topic IPV Vaccines Aged Out No longer eligi ble based on patient's age to complete this topic Meningococcal B Vaccine Aged Out No l onger eligible based on patient's age to complete this topic Meningococcal Vaccine Aged Out No frances alhaji eligible based on patient's age to complete this topic Pneumococcal Vaccine: Pediat rics (0 to 5 Years) and At-Risk Patients (6 to 49) Years Aged Out No longer eligible b ased on patient's age to complete this topic RSV under 20 months Aged Out No longe r eligible based on patient's age to complete this topic Rotavirus Vaccines Aged Out No longer eligible based on patient's age to complete this topic
[2024-08-26 16:42] LABS: Calprotectin, Fecal 10 mcg/g
== END 2024-08-20 12:17 | disposition home or self-care (01) ==
LOC: HO.LNP 12:16
PROVIDERS: Visit Provider Internal Medicine
DX: R19.7 Diarrhea, unspecified (principal)
CPT/HCPCS: 82656; 82705; 83993

== ENCOUNTER 2024-09-12 10:00 | Outpatient (REF) | payer MEDICAID, SELFPAY ==
--- NOTE | ~2024-09-12 | US_ITS ---
EXAMINATION: US ABDOMEN HISTORY: R19.7 - Diarrhea, unspecified TECHNIQUE: Real-time grayscale ultrasound imaging of the abdomen was performed and images were reviewed. COMPARISON: There are no prior studies available for comparison. FINDINGS: Liver: The right lobe of the liver measures 17.9 cm in size. The left lobe of the liver measures 9.4 cm in size. The liver demonstrates increased echotexture, consistent with steatosis. There is focal fatty sparing adjacent to the gallbladder. Small hypoechoic area in the right lobe may represent an additional focus of focal fatty sparing. No definite mass is identified. No intrahepatic biliary ductal dilatation is identified. There is normal hepatopedal flow in the portal vein. Gallbladder and biliary tree: The gallbladder is unremarkable, without evidence of calculi, wall thickening, or pericholecystic fluid. There is no sonographic Souza sign. The common bile duct is normal in caliber measuring 3 mm. Kidneys: The right kidney measures 11.8 cm in length and demonstrates a 2.4 x 2.2 x 2.0 cm cyst in the interpolar region. The left kidney measures 11.7 cm in length. There is limited visualization of the upper pole. The kidneys are otherwise unremarkable, without evidence of masses, hydronephrosis, or calculi. Pancreas: The pancreas is obscured by bowel gas. Spleen: The spleen is normal in size and contour, measuring 11.6 cm in length. Abdominal aorta and inferior vena cava: The visualized portions of the abdominal aorta and inferior vena cava are normal in caliber. There is no free fluid in the abdomen. US/US abdomen complete IMPRESSION: 1. Hepatomegaly and hepatic steatosis with areas of focal fatty sparing. 2. 2.4 cm right renal cyst. Electronically signed by: Anshu Beltrán MD 09/12/2024 11:06 AM EDT
--- OUTSIDE RECORDS SUMMARY | 2024-09-12 10:03 | XMS_ITS | Clinical Summary ---
Author Organization [facility] Address [address] [id number] Care Team Providers Care Fish Hatchery Inspector Name Role Phone Unavailable Primary Care Provider [...] Comp Self 1980 [address] [place] [address] Darshan Whatley Personal/Famil y Self 1980 [address] [place] [address]
--- OUTSIDE RECORDS SUMMARY | 2024-09-12 10:03 | XMS_ITS | Encounter Summary ---
Author Organization [facility] Address [address] [place] [address] Care Team Providers Care Sheet Heater Helper Name Role Phone Pcp, No Primary Care Provider Unavailabl e Encounter Details Date Type Department Care Team (Late st Contact Info) Description 04/14/2020 Erroneous Encounter OA CONVERSION DEPT [address] [place] [address] Provider, MD Juan Social History Tobacco Use [...] on filedocumented in this encounter Care Teams Sheet Heater Helper Relationship Specialty Start Date End Date Pcp, No PCP - General General Medicine 03/20/19 documented as of this encounter
--- OUTSIDE RECORDS SUMMARY | 2024-09-12 10:03 | XMS_ITS | Clinical Summary ---
Author Organization [employer] Address [address] [facility] [address] [place] [address] Care Team Providers Care Hoisting Engineer Name Role Phone Unavailable Primary Care Provider [...]
== END 2024-09-12 10:01 | disposition home or self-care (01) ==
LOC: HO.US 10:00
PROVIDERS: PCP Physician Assistant Medical; Visit Provider Internal Medicine
DX: R19.7 Diarrhea, unspecified (principal)
CPT/HCPCS: 76700

== ENCOUNTER → 2024-09-12 10:02 | Outpatient (BNV) | payer MEDICAID, SELFPAY | PROVIDERS: PCP Physician Assistant Medical; Visit Provider Radiology Diagnostic Radiology | DX: R16.0 Hepatomegaly, not elsewhere classified (principal) | CPT/HCPCS: 76700 ==

== ENCOUNTER 2024-10-15 09:19 | Outpatient (AMB) | payer MEDICAID, SELFPAY ==
--- NOTE | 2024-10-15 09:25 | MHC.OFFVIS ---
Vital Signs 10/15/24 09:30 Height 6 ft 1 in Weight 255 lb 11.779 oz BMI 33.7 BP 123/72 Blood Pressure Location Lt brachial Position Sitting Pulse 97 Intake Visit Reasons: 3m Intake Note: Darshan presents in the office as a 3 month follow up. CC: States that he is feeling okay and no concerns. Allergies No Known Allergies Allergy (Verified 10/15/24 09:31) HPI Comments Details: 43 y.o M with PMH of who is here for abd complaints. Initially pt was unsure what the referral was for and thought this was intermittent facial rash. He also reports occ diarrhea related to certain food triggers such as fried food or spicy food. BMs can be up to 3-4 times a day. Not assoc with abd pain or nausea. This happens 1-2 times a month. Is being careful with his diet lately so frequency less now. Had allergy testing done 2 months ago and was only pos for strawberries per his report. Mother: stomach ca Does not smoke. Drinks once a week. 10/15/24: Pt here for follow up. No acute issues today. Has been avoiding trigger foods so diarrhea not bothersome anymore. Testing as below, essentially al normal. He did also get an US to eval for elevated LFTs. This shows steatosis and hepatomegaly. Patient drinks 2-3 drinks of wine per week. BMI 33. Sedentary lifestyle. Laboratory Tests 07/09/24 08/20/24 10:53 08:25 Hgb 15.4 Hct 45.8 Plt Count 190 AST 34 ALT 56 H Stool Fat, Qual Normal Stool Calprotectin 10 Stool Pancreat Elastase >800 IgA 174 Tiss Transglutamin IgA <1.0 PFSH Surgical History Hx of vascular surgery Social History Household Members: Family Alcohol intake: current Alcohol intake frequency: holidays/special occasions only Patient Tobacco Use Status: Never used Tobacco Physical Exam Exam Exam: No apparent distress Nonicteric Abdomen soft, nondistended Alert and oriented x3, normal gait Vital Signs: Last Vital Signs Pulse 97 10/15/24 09:30 BP 123/72 10/15/24 09:30 BMI result Body Mass Index 33.7 Assessment & Plan Assessment & Plan (1) 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 - Other specified abnormal findings of blood chemistry Category: Medical (3) Obesity (BMI 30.0-34.9): Code(s): E66.811 - Obesity, class 1 Category: Medical Plan Diarrhea seems to be food triggered. Workup for panc insufficiency, IBD, symptomatic gallstones negative. DARNELL negative. In terms of elevated LFTs, most likely secondary to MAFLD/MASH. Plan: -labs order to rule out other etiology of chronic liver disease -will also check A1c and lipid panel to rule out metabolic risk factor Follow-up in 3 months Orders: Orders Immunoglobulin A Today - Other specified abnormal findings of blood chemistry IRON PROFILE Today . - Other specified abnormal findings of blood chemistry Hepatitis B Surface Antibody Today R7. - Other specified abnormal findings of blood chemistry Mitochondrial Antibody Today R7. - Other specified abnormal findings of blood chemistry Hemoglobin A1c Today R7. - Other specified abnormal findings of blood chemistry Alpha 1 Anti-trypsin Today R7. - Other specified abnormal findings of blood chemistry Ceruloplasmin Today R7. - Other specified abnormal findings of blood chemistry Ferritin Today R7. - Other specified abnormal findings of blood chemistry Immunoglobulin G Today R7. - Other specified abnormal findings of blood chemistry Hepatitis A IgG Today R7. - Other specified abnormal findings of blood chemistry Hepatitis B Core Antibody Today R7. - Other specified abnormal findings of blood chemistry Hepatitis B Surface Antigen Today R7. - Other specified abnormal findings of blood chemistry Hepatitis C Antibody Today . - Other specified abnormal findings of blood chemistry Liver Kidney Microsomal Ab Today R7. - Other specified abnormal findings of blood chemistry Phosphatidylethanol, Blood Today R7. - Other specified abnormal findings of blood chemistry Smooth Muscle Antibody Today R7. - Other specified abnormal findings of blood chemistry TSH reflex Free T4 Today . - Other specified abnormal findings of blood chemistry Lipid Panel Today . - Other specified abnormal findings of blood chemistry Coding Level of Care Code Est Pt Level 4 (36884) Diagnoses Food intolerance in adult K90.49 Elevated LFTs . Obesity (BMI 30.0-34.9) E66.811
[2024-10-15 09:30] VITALS: BP 123/72; PULSE 97; BMI 33.7
--- OUTSIDE RECORDS SUMMARY | 2024-10-15 11:06 | XMS_ITS | Encounter Summary ---
Author Organization [facility] Address [address] [place] [address] Care Team Providers Care Plant Electrician Name Role Phone Pcp, No Primary Care Provider Unavailabl e Encounter Details Date Type Department Care Team (Late st Contact Info) Description 04/14/2020 Erroneous Encounter OA CONVERSION DEPT [address] [place] [address] Provider, MD Juan Social History Tobacco Use [...] on filedocumented in this encounter Care Teams Plant Electrician Relationship Specialty Start Date End Date Pcp, No PCP - General General Medicine 03/20/19 documented as of this encounter
--- OUTSIDE RECORDS SUMMARY | 2024-10-15 11:06 | XMS_ITS | Clinical Summary ---
Author Organization [facility] Address [address] [place] [address] Care Team Providers Care Convex Grinder Name Role Phone Pcp, No Primary Care Provider Unavailabl e Allergies No known active allergies Medications ibuprofen (MOTRIN) 600 MG tablet Take 1 tablet (600 mg total) by mouth 3 (three) times a day as needed for mild pain (pain). 20 tablet 03/20/2019 Active Social History Tobacco Use Types Packs/Day Years Used Date Smoking Tobacco: Never Smokeless Tobacco: Never Alcohol Use Standard Drinks/Week Comments Yes 0 (1 standard drink = 0.6 oz pur e alcohol) Sex and Gender Information Value Date Recorded Sex Assigned at Not on file Legal Sex Male 7:23 PM EST Gender Identity Not on file Sexual Orientation Not on file Last Filed Vital Signs Vital Sign Reading Time Taken Comments Blood Pressure 135/80 03/20/2019 7:29 PM EST Pulse 90 03/20/2019 7:29 PM EST Temperature 37.7 C (99.8 F) 03/20/2019 7:29 PM EST Respiratory Rate 18 03/20/2019 7:29 PM EST Oxygen Saturation 100% 03/20/2019 7:29 PM EST Inhaled Oxygen Concentration - - Weight - - Height - - Body Mass Index - - Plan of Treatment Health Maintenance Due Date Last Done Comments Hepatitis C Virus Screening 1980 HIV Screening 1993 DTaP/Tdap/Td Vaccines (1 - Tdap) 12/18/1999 Hepatitis B Vaccines (1 of 3 - 19+ 3-dose series) 12/18/1999 HPV Vaccines (1 - 3-dose SCD M series) 12/18/2007 Influenza Vaccine 09/05/2024 COVID-19 Vaccine ( - 2023-2 5 season) 2024 Pneumococcal Vaccine: Pediat monica (0-5 Years) and At-Risk Patients (6 to 49 Years) Aged Out No longer eligible b ased on patient's age to complete this topic Insurance [facility] [employer] Care Teams Convex Grinder Relationship Specialty Start Date End Date Pcp, No PCP - General General Medicine 03/20/19
--- OUTSIDE RECORDS SUMMARY | 2024-10-15 11:06 | XMS_ITS | Encounter Summary ---
Author Organization [employer] Address [address] [facility] 7 [place] [address] Care Team Providers Care Machinery Repair Maintenance Supervisor Name Role Phone Unavailable Primary Care Provider Unavailabl e Encounter Details Date Type Department Care Team (Latest Contact Info) Description 03/14/2019 Abstract C CONVERSIONS Dental, Provider, DDS Social History Tobacco Use Types Packs/Day Years Used Date Smoking Tobacco: Never Assessed Sex and Gender Information Value Date Recorded Sex Assigned at Male 12/05/2021 10:36 AM EDT Legal Sex Male 10:36 AM EDT Gender Identity Not on file Sexual Orientation Straight 12/05/2021 10 :36 AM EDT documented as of this encounter Plan of Treatment Not on file documented as of this encounter Visit Diagnoses Not on filedocumented in this encounter
--- OUTSIDE RECORDS SUMMARY | 2024-10-15 11:06 | XMS_ITS | Clinical Summary ---
Author Organization [facility] Address [address] [id number] Care Team Providers Care Student Support Counselor Name Role Phone Unavailable Primary Care Provider [...] Comp Self 1980 [address] [place] [address] Darshan Whatley Personal/Famil y Self 1980 [address] [place] [address]
--- OUTSIDE RECORDS SUMMARY | 2024-10-15 11:06 | XMS_ITS | Clinical Summary ---
Author Organization [employer] Address [address] [facility] [address]t [place] [address] Care Team Providers Care Refinery Operator Helper Name Role Phone Unavailable Primary Care Provider [...] COVID-19 Vaccine (1 - 2023-2 5 season) 2024 Influenza Vaccine (#1) 2024 Zoster Vaccines (1 [...]
--- OUTSIDE RECORDS SUMMARY | 2024-10-15 11:06 | XMS_ITS | Encounter Summary ---
Author Organization [facility] Address [address] [place] [address] Care Team Providers Care Chief Growth Officer Name Role Phone Pcp, No Primary Care Provider Unavailabl e Encounter Details Date Type Department Care Team (Late st Contact Info) Description 04/06/2020 Erroneous Encounter OA CONVERSION DEPT [address] [place] [address] Provider, MD Juan Social History Tobacco Use [...] on filedocumented in this encounter Care Teams Chief Growth Officer Relationship Specialty Start Date End Date Pcp, No PCP - General General Medicine 03/20/19 documented as of this encounter
--- OUTSIDE RECORDS SUMMARY | 2024-10-15 11:06 | XMS_ITS | Encounter Summary ---
Author Organization [facility] Address [address] [place] [address] Care Team Providers Care Paper Steamer Name Role Phone Pcp, No Primary Care Provider Unavailabl e Encounter Details Date Type Department Care Team (Late st Contact Info) Description 04/06/2020 Erroneous Encounter OA CONVERSION DEPT [address] [place] [address] Provider, MD Juan Social History Tobacco Use [...] on filedocumented in this encounter Care Teams Paper Steamer Relationship Specialty Start Date End Date Pcp, No PCP - General General Medicine 03/20/19 documented as of this encounter
== END 2024-10-15 09:51 | disposition home or self-care (01) ==
LOC: HO.HGI 09:21
PROVIDERS: PCP Physician Assistant Medical; Visit Provider Internal Medicine
DX: K90.49 Malabsorption due to intolerance, not elsewhere classified (principal); R79.89 Other specified abnormal findings of blood chemistry; E66.811 Obesity, class 1
CPT/HCPCS: 99214

== ENCOUNTER → 2024-10-15 09:19 | Outpatient (BNVA) | payer MEDICAID, SELFPAY | PROVIDERS: PCP Physician Assistant Medical; Visit Provider Internal Medicine | DX: K90.49 Malabsorption due to intolerance, not elsewhere classified (principal); R79.89 Other specified abnormal findings of blood chemistry; E66.811 Obesity, class 1; Z68.33 Body mass index [BMI] 33.0-33.9, adult | CPT/HCPCS: 99212 ==

== ENCOUNTER 2024-10-22 15:48 | Outpatient (REF) | payer MEDICAID, SELFPAY ==
[2024-10-22 18:54] LABS: Total Hemoglobin (HGBA1C) 3853.2358 umol/L
--- OUTSIDE RECORDS SUMMARY | 2024-10-22 19:06 | XMS_ITS | Clinical Summary ---
Author Organization [facility] Address [address] [id number] Care Team Providers Care Research Project Coordinator Name Role Phone Unavailable Primary Care Provider [...] Comp Self 1980 [address] [place] [address] Darshan Whatley Personal/Famil y Self 1980 [address] [place] [address]
--- OUTSIDE RECORDS SUMMARY | 2024-10-22 19:06 | XMS_ITS | Encounter Summary ---
Author Organization [facility] Address [address] [place] [address] Care Team Providers Care Information Security Associate Name Role Phone Pcp, No Primary Care Provider Unavailabl e Encounter Details Date Type Department Care Team (Late st Contact Info) Description 04/06/2020 Erroneous Encounter OA CONVERSION DEPT [address] [place] [address] Provider, MD Juan Social History Tobacco Use [...] on filedocumented in this encounter Care Teams Information Security Associate Relationship Specialty Start Date End Date Pcp, No PCP - General General Medicine 03/20/19 documented as of this encounter
--- OUTSIDE RECORDS SUMMARY | 2024-10-22 19:06 | XMS_ITS | Encounter Summary ---
Author Organization [employer] Address [address] [facility] 7 [place] [address] Care Team Providers Care Supervisor Pumping Station Name Role Phone Unavailable Primary Care Provider [...]
--- OUTSIDE RECORDS SUMMARY | 2024-10-22 19:06 | XMS_ITS | Encounter Summary ---
Author Organization [facility] Address [address] [place] [address] Care Team Providers Care Geodetic Engineer Name Role Phone Pcp, No Primary Care Provider Unavailabl e Encounter Details Date Type Department Care Team (Late st Contact Info) Description 04/06/2020 Erroneous Encounter OA CONVERSION DEPT [address] [place] [address] Provider, MD Juan Social History Tobacco Use [...] on filedocumented in this encounter Care Teams Geodetic Engineer Relationship Specialty Start Date End Date Pcp, No PCP - General General Medicine 03/20/19 documented as of this encounter
--- OUTSIDE RECORDS SUMMARY | 2024-10-22 19:06 | XMS_ITS | Encounter Summary ---
Author Organization [facility] Address [address] [place] [address] Care Team Providers Care Cashier Greeter Name Role Phone Pcp, No Primary Care Provider Unavailabl e Encounter Details Date Type Department Care Team (Late st Contact Info) Description 04/14/2020 Erroneous Encounter OA CONVERSION DEPT [address] [place] [address] Provider, MD Juan Social History Tobacco Use [...] on filedocumented in this encounter Care Teams Cashier Greeter Relationship Specialty Start Date End Date Pcp, No PCP - General General Medicine 03/20/19 documented as of this encounter
--- OUTSIDE RECORDS SUMMARY | 2024-10-22 19:06 | XMS_ITS | Clinical Summary ---
Author Organization [employer] Address [address] [facility] 7t [place] [address] Care Team Providers Care Client Relationship Manager Name Role Phone Unavailable Primary Care Provider [...]
--- OUTSIDE RECORDS SUMMARY | 2024-10-22 19:06 | XMS_ITS | Clinical Summary ---
Author Organization [facility] Address [address] [place] [address] Care Team Providers Care Alignment Mechanic Name Role Phone Pcp, No Primary Care [...] patient's age to complete this topic Insurance [facility] [employer] Member Subscriber Plan / Payer (Ef fective 2019-Present) Name:Darshan Whatley Member ID:[id number] Relation to Subscriber:Employee Name:[employer] Subscriber ID:[id number] Date of :1899 Address: [address] [place] [address] Payer ID:Not on file Group ID:Not on file Type:Workers Compensation Address: [place] [address] Care Teams Alignment Mechanic Relationship Specialty Start Date End Date Pcp, No PCP - General General Medicine 03/20/19
[2024-10-22 19:18] LABS: Cholesterol 219 mg/dL (<200); Ferritin 318 ng/mL (20-250); HDL Cholesterol 31 mg/dL (>40); Iron 49 mcg/dL (45-160); Percent Iron Saturation 19 % (15-50); Total Iron Binding Capacity 264 mcg/dL (228-428); Triglycerides 314 mg/dL (<150); Unsaturated Iron Binding 215 ug/dL
[2024-10-23 06:23] LABS: HBS Num1 0.00 mIU/mL (0-7.99); HBc Num1 0.05 S/CO (0.00-0.79); HBsAGNum1 0.59 S/CO (0.00-0.99); Hepatitis B Surface Antigen Negative (Negative); ~HepC Num1 0.10 S/CO (0.00-0.79); ~Hepatitis B Surface Antibody NONREACTIVE (Nonreactive); ~Hepatitis C Antibody Nonreactive (Nonreactive)
[2024-10-23 08:38] LABS: Immunoglobulin A 168 mg/dL (47-310); Immunoglobulin G 1304 mg/dL (600-1640)
[2024-10-24 09:31] LABS: ~Hepatitis A Antibody IgG 0.30 S/CO (0.00-0.99)
[2024-10-28 04:48] LABS: Liver Kidney Microsomal Ab <=20.0 U (<=20.0)
[2024-10-29 11:02] LABS: Phosphatidylethanol 16:0-18:1 NEGATIVE; Phosphatidylethanol 16:0-18:2 NEGATIVE
== END 2024-10-22 15:49 | disposition home or self-care (01) ==
LOC: HO.WFDLDS 15:48
PROVIDERS: Visit Provider Internal Medicine
DX: Z01.84 Encounter for antibody response examination (principal); Z11.59 Encounter for screening for other viral diseases; R79.89 Other specified abnormal findings of blood chemistry
CPT/HCPCS: 36415; 80061; 80321; 82103; 82390; 82728; 82784; 83036; 83540; 84443; 86015; 86376; 86381; 86704; 86706; 86708; 86803; 87340

== ENCOUNTER 2025-01-14 15:24 | Outpatient (AMB) | payer MEDICAID, SELFPAY ==
--- NOTE | 2025-01-14 15:26 | A.OFFVIS_ITS ---
Vital Signs 01/14/25 15:28 Height 6 ft 1 in Weight 249 lb 1.957 oz BMI 32.9 BP 119/77 Blood Pressure Location Lt brachial Position Sitting Pulse 84 Intake Visit Reasons: 3m Intake Note: Darshan presents in the office as a 3 month follow up. CC: States that today is just a follow up - no concern. Concrete Bucket Hooker Required: No Allergies No Known Allergies Allergy (Verified 01/14/25 15:29) HPI Comments Details: 43 y.o M with PMH of who is here for abd complaints. Initially pt was unsure what the referral was for and thought this was intermittent facial rash. He also reports occ diarrhea related to certain food triggers such as fried food or spicy food. BMs can be up to 3-4 times a day. Not assoc with abd pain or nausea. This happens 1-2 times a month. Is being careful with his diet lately so frequency less now. Had allergy testing done 2 months ago and was only pos for strawberries per his report. Mother: stomach ca Does not smoke. Drinks once a week. 10/15/24: Pt here for follow up. No acute issues today. Has been avoiding trigger foods so diarrhea not bothersome anymore. Testing as below, essentially al normal. He did also get an US to eval for elevated LFTs. This shows steatosis and hepatomegaly. Patient drinks 2-3 drinks of wine per week. BMI 33. Sedentary lifestyle. Laboratory Tests 07/09/24 08/20/24 10:53 08:25 Hgb 15.4 Hct 45.8 Plt Count 190 AST 34 ALT 56 H Stool Fat, Qual Normal Stool Calprotectin 10 Stool Pancreat Elastase >800 IgA 174 Tiss Transglutamin IgA <1.0 01/14/25: The patient is a 44 year old male presenting for follow-up of abnormal liver function tests. Blood work from October revealed a diagnosis of fatty liver and hyperlipidemia. Remaining labs for chronic liver disease are neg. Atorvastatin was prescribed last month for his cholesterol, but he has not yet picked up the medication from the pharmacy or started taking it. Regarding lifestyle, the patient reports walking more but does not exercise consistently 4-5 times a week as previously recommended. He also reports snoring and has an upcoming appointment with a sleep medicine specialist next week. --- Pt was informed and consented to the use of ambient scribe for this encounter. --- [facility] Surgical History Hx of vascular surgery Social History Household Members: Family Alcohol intake: current Alcohol intake frequency: holidays/special occasions only Patient Tobacco Use Status: Never used Tobacco Review of Systems Narrative Review of Systems - Gastrointestinal: Denies nausea or vomiting. - Reports occasional, non-severe abdominal pain. - Respiratory: Reports snoring while sleeping. Physical Exam Exam Exam: No apparent distress Nonicteric Abdomen soft, nondistended Alert and oriented x3, normal gait Vital Signs: Last Vital Signs Pulse 84 01/14/25 15:28 BP 119/77 01/14/25 15:28 BMI result Body Mass Index 32.9 Assessment & Plan Assessment & Plan (1) Obesity (BMI 30.0-34.9): Code(s): E66.811 - Obesity, class 1 Category: Medical (2) Elevated LFTs: Code(s): R79.89 - Other specified abnormal findings of blood chemistry Category: Medical (3) Hyperlipidemia: Code(s): E78.5 - Hyperlipidemia, unspecified Category: Medical Plan Assessment and Plan 1. MASLD Elevated liver enzymes are attributed to non-etOH fatty liver disease secondary to hyperlipidemia. Other causes of chronic liver disease have been ruled out. Plan: - Start atorvastatin 20 daily at night. - Repeat LFTs and lipid panel to be done in 2 months. - Lifestyle modifications were reinforced, including mod intensity exercise 150 mins /week. Follow up 3 months Coding Level of Care Code Est Pt Level 3 (61098) Diagnoses Obesity (BMI 30.0-34.9) E66.811 Elevated LFTs R79.89 Hyperlipidemia E78.5
[2025-01-14 15:28] VITALS: BP 119/77; PULSE 84; BMI 32.9
--- OUTSIDE RECORDS SUMMARY | 2025-01-14 23:55 | XMS_ITS | Clinical Summary ---
Author Organization [facility] Address [address] [place] [address] Care Team Providers Care Street Openings Inspector Name Role Phone Pcp, No Primary Care [...] of 3 - 19+ 3-dose series) 12/18/1999 Influenza Vaccine 09/05/2024 COVID-19 Vaccine (2023-2 5 season) 2024 HPV Vaccines (No Doses Required) Completed Pneumococcal Vaccine: Pediat monica (0-5 Years) and At-Risk Patients (6 to 49 Years) Aged Out No longer eligible b ased on patient's age to complete this topic Insurance [facility] [employer] Care Teams Street Openings Inspector Relationship Specialty Start Date End Date Pcp, No PCP - General General Medicine 03/20/19
--- OUTSIDE RECORDS SUMMARY | 2025-01-14 23:55 | XMS_ITS | Clinical Summary ---
Author Organization [employer] Address [address] [facility] 7t [place] [address] Care Team Providers Care Manager Sterile Processing Name Role Phone Unavailable Primary Care Provider [...] 3-dose series) 12/18/1999 COVID-19 Vaccine (1 - 2024-2 6 season) 2024 Influenza Vaccine (#1) 2024 Zoster [...]
--- OUTSIDE RECORDS SUMMARY | 2025-01-14 23:55 | XMS_ITS | Clinical Summary ---
Author Organization [facility] to 07[facility]24 Address [address] [place] [address] Care Team Providers Care Drill Operator Name Role Phone Unavailable Primary Care Provider [...] Comp Self 1980 [address] [place] [address] Darshan Whatley Personal/Famil y Self 1980 [address] [place] [address]
--- OUTSIDE RECORDS SUMMARY | 2025-01-14 23:55 | XMS_ITS | Encounter Summary ---
Author Organization [employer] Address [address] [facility] 7 [place] [address] Care Team Providers Care Campus Ambassador Name Role Phone Unavailable Primary Care Provider [...]
== END 2025-01-14 16:00 | disposition home or self-care (01) ==
LOC: HO.HGI 15:24
PROVIDERS: PCP Physician Assistant Medical; Visit Provider Internal Medicine
DX: E66.811 Obesity, class 1 (principal); R79.89 Other specified abnormal findings of blood chemistry; E78.5 Hyperlipidemia, unspecified
CPT/HCPCS: 99213

== ENCOUNTER → 2025-01-14 15:24 | Outpatient (BNVA) | payer MEDICAID, SELFPAY | PROVIDERS: PCP Physician Assistant Medical; Visit Provider Internal Medicine | DX: R79.89 Other specified abnormal findings of blood chemistry (principal); E78.5 Hyperlipidemia, unspecified; E66.811 Obesity, class 1; Z68.32 Body mass index [BMI] 32.0-32.9, adult | CPT/HCPCS: 99212 ==